=== PATIENT | male | born 1970 | race Caucasian/White ===

== ENCOUNTER 2020-01-06 18:29 | Observation (INO) | payer OTHER, SELFPAY ==
[2020-01-06] VITALS (8 sets, daily range): BP systolic 148–172; BP diastolic 93–107; PULSE 62–78; RESP 13–20; TEMP 35.7–36.6; O2SAT 98–100; BMI 28.3
--- NOTE | ~2020-01-06 | XR_ITS ---
EXAMINATION: XR chest 1V portable EXAM DATE: 01/06/2020 19:00 INDICATION: Midsternal chest pain, history of stent placement 3 years ago. History of hypertension an d epicardial infarction. TECHNIQUE: Portable AP frontal chest x-ray was obtained. Comparison is made to prior examination from 10/04/2016. FINDINGS: Right upper lobe granuloma. The lungs are otherwise clear. There are no pleural effusions. Cardiac silhouette is prominent but magnified on this AP technique. There is no pneumothorax susp ected. The bones and soft tissues are unremarkable. IMPRESSION: No acute cardiopulmonary findings. Reviewed, dictated and finalized at location A.
--- NOTE | 2020-01-06 18:35 | ECG_ITS ---
Measurements Intervals [place] Rate: 78 P: 35 WI: 174 QRS: -14 QRSD: 102 T: 18 QT: 375 QTc: 428 Interpretive Statements SINUS RHYTHM ANTEROSEPTAL INFARCT, AGE INDETERMINATE BASELINE ARTIFACT- II, III ABNORMAL ECG Electronically Signed On 01-08-2020 14:00:11 CDT by Ike Palomo D.O.
[2020-01-06 18:47] LABS: Basophils Absolute Auto 0.1 K/mm3 (0.0-0.1); Basophils Percent Auto 0.8 % (0.2-1.2); Eosinophils Absolute Auto 0.2 K/mm3 (0-0.3); Eosinophils Percent Auto 1.2 % (0-4.4); Hemoglobin 15.9 g/dL (14.0-18.0); Immature Granulocyte Absolute 0.06 K/mm3 (0.00-0.031); Immature Granulocyte Percent A 0.5 % (0-0.5); Lymphocytes Absolute Auto 2.38 K/mm3 (0.9-3.2); Lymphocytes Percent Auto 18.4 % (18.3-44.2); Mean Corpuscular HGB Conc 33.8 g/dl (32-36); Mean Corpuscular Hemoglobin 29.9 pg (26-34); Mean Corpuscular Volume 88.3 fl (80-100); Monocytes Absolute Auto 0.9 K/mm3 (0.1-0.6); Neutrophils Absolute Auto 9.4 K/mm3 (1.3-6.7); Neutrophils Percent Auto 72.1 % (45.5-73.1); Platelet Count Result 226 k/mm3 (150-375); Red Blood Count 5.32 M/mm3 (4.6-6.20)
--- NOTE | 2020-01-06 18:49 | ED.CHESTPAIN ---
HPI - Chest Pain General Chief Complaint: Chest Pain Stated Complaint: chest pain Time Seen by Provider: 01/06/20 18:34 Source: patient Mode of arrival: ambulatory Limitations: no limitations History of Present Illness HPI narrative: Patient 49-year-old male who presents to emergency department with chest heaviness for the last 3 days intermittent over the last couple of days became more constant today has taken aspirin and nitroglycerin with some improvement significant cardiac history with stents also noting that he is cardiac disease that did not get stented with 60% blockage in some vessels. Patient is followed by cardiology at [facility]. Patient denies any pain recent illness or other complaints presents in no distress and does not appear uncomfortable Related Data Home Medications Medication Instructions Recorded Confirmed aspirin 81 mg PO DAILY 01/06/20 atorvastatin 01/06/20 bupropion HCl mg PO 01/06/20 cyclobenzaprine mg 01/06/20 lisinopril 01/06/20 nebivolol [Bystolic] mg 01/06/20 nitroglycerin 0.4 mg SUBLINGUAL Q5-15M PRN 01/06/20 omeprazole 01/06/20 ticagrelor [Brilinta] mg 01/06/20 Allergies Allergy/AdvReac Type Severity Reaction Status Date / Time No Known Allergies Allergy Unknown Verified 01/06/20 18:35 Review of Systems Review of Systems: All systems reviewed & are unremarkable except as noted in HPI and below PMFSH Social History Social History Gender identity (if verbalized by the patient): Male Exam Narrative: Exam Narrative: GENERAL: Well-appearing, well-nourished, and in no acute distress. HEAD: Normocephalic, atraumatic. EYES: PERRLA and EOMI. ENT: Nares clear, no rhinorrhea or epistaxis. Mucous membranes moist. NECK: Supple. No adenopathy or masses. No carotid bruits or JVD CHEST: Clear to auscultation. No respiratory distress. No wheezes rales or rhonchi HEART: Regular rate and rhythm. No murmur heard. Normal peripheral pulses. ABDOMEN: Soft, nontender, nondistended EXTREMITIES: Normal range of motion. No edema. SKIN: Warm, dry, no rash. NEURO: No focal deficits. Alert and oriented x3. PSYCH: Normal mood and affect. Course Vital Signs Vital signs: Vital Signs Temperature 97.8 F 01/06/20 18:31 Pulse Rate 74 01/06/20 18:31 Respiratory Rate 13 01/06/20 18:31 Blood Pressure 172/107 H 01/06/20 18:31 Pulse Oximetry 100 01/06/20 18:31 Temperature 97.8 F 01/06/20 18:31 Pulse Rate 76 01/06/20 18:41 Respiratory Rate 13 01/06/20 18:41 Blood Pressure 172/107 H 01/06/20 18:41 Pulse Oximetry 100 01/06/20 18:41 MDM - Chest Pain Lab Data Result diagrams: 01/06/20 18:42 01/06/20 18:42 Labs: Lab Results 01/06/20 01/06/20 01/06/20 Range/Units 18:42 18:42 18:42 WBC 13.0 H (4.5-10.0) K/mm3 RBC 5.32 (4.6-6.20) M/mm3 Hgb 15.9 (14.0-18.0) g/dL Hct 47.0 (42.0-52.0) % MCV 88.3 (80-100) fl MCH 29.9 (26-34) pg MCHC 33.8 (32-36) g/dl RDW 12.0 (11.5-14.5) % Plt Count 226 (150-375) k/mm3 MPV 10.0 (7.4-10.4) fl Immature Gran % (Auto) 0.5 (0-0.5) % Neut % (Auto) 72.1 (45.5-73.1) % Lymph % (Auto) 18.4 (18.3-44.2) % [place] % (Auto) 7.0 (2.6-8.5) % Eos % (Auto) 1.2 (0-4.4) % Baso % (Auto) 0.8 (0.2-1.2) % Lymph # (Auto) 2.38 (0.9-3.2) K/mm3 [place] # (Auto) 0.9 H (0.1-0.6) K/mm3 Eos # (Auto) 0.2 (0-0.3) K/mm3 Baso # (Auto) 0.1 (0.0-0.1) K/mm3 Abs Immat Gran (auto) 0.06 H (0.00-0.031) K/mm3 Absolute Neuts (auto) 9.4 H (1.3-6.7) K/mm3 Absolute Nucleated RBC 0.0 (0.0-0.012) K/mm3 Nucleated RBC % 0.0 (0.0-0.2) % PT Pending INR Pending APTT Pending D-Dimer Pending Sodium Pending Potassium Pending Chloride Pending Carbon Dioxide Pending Anion Gap Pending BUN Pending Creatinine Pendi
[2020-01-06 18:57] LABS: INR 1.1; Partial Thromboplastin Time 26.4 SECONDS (22.3-36.8); Prothrombin Time 13.7 Seconds (11.1-14.7)
[2020-01-06 18:59] LABS: Alanine Aminotransferase 34 U/L (4-50); Albumin Level 4.4 g/dL (3.5-5.1); Alkaline Phosphatase 99 U/L (38-126); Anion Gap 9 mmol/L (8-16); Aspartate Amino Transferase 30 U/L (17-59); Bilirubin,Total 0.5 mg/dL (0.2-1.3); Blood Urea Nitrogen 23 mg/dL (9-20); Calcium 9.5 mg/dL (8.4-10.2); Carbon Dioxide 28 mmol/L (22-30); Chloride 101 mmol/L (98-107); Estimated CRCL calculation 87 ml/min; Estimated Glomerular Filt Rate > 60; Glucose 151 mg/dL (75-110); Lipase 182 U/L (23-300); Potassium 3.9 mmol/L (3.4-5.0); Sodium 138 mmol/L (137-145)
[2020-01-06 19:01] LABS: D Dimer < 0.22 ug/mL (<0.48)
[2020-01-06 19:11] LABS: NT Pro B Type Natriuretic Pept 118 PG/ML (5-100); Troponin I < 0.012 ng/mL (0.000-0.034)
[2020-01-06 19:34] LABS: Add Urine Microscopic? YES; Appearance Urine Clear (Clear); Bilirubin Urine Negative (Negative); Blood Urine 2+ (Negative); Color Urine Yellow (Yellow); Glucose Urine UA Negative (Negative); Ketones Urine Negative (Negative); Leukocyte Esterase Ur Negative LEU/UL (Negative); Mucus Urine Rare /lpf; Nitrate Urine Negative (Negative); Protein Urine Negative (Negative); Specific Grav Ur 1.018 (1.001-1.035); Squamous Epithelial Cell Urine Rare /hpf (Few); Urobilinogen Urine Negative mg/dL (<2.0); WBC Urine 0-3 /hpf
--- NOTE | 2020-01-06 19:40 | ED.CHESTPAIN ---
HPI - Chest Pain General Chief Complaint: Chest Pain Stated Complaint: chest pain Time Seen by Provider: 01/06/20 18:34 Source: patient Mode of arrival: ambulatory Limitations: no limitations History of Present Illness HPI narrative: Patient is a 49-year-old male who presents to emergency department for evaluation of chest heaviness that has been present now for the last 3 days was intermittent heaviness over the left chest for the last 2 days and then became more constant today patient took nitro and aspirin today and on arrival notes that the discomfort is resolving patient notes history of coronary artery disease with stenting and residual vessel disease is followed by cardiology at [facility] patient otherwise on arrival in no distress Related Data Home Medications Medication Instructions Recorded Confirmed aspirin 81 mg PO DAILY 01/06/20 atorvastatin 01/06/20 bupropion HCl mg PO 01/06/20 cyclobenzaprine mg 01/06/20 lisinopril 01/06/20 nebivolol [Bystolic] mg 01/06/20 nitroglycerin 0.4 mg SUBLINGUAL Q5-15M PRN 01/06/20 omeprazole 01/06/20 ticagrelor [Brilinta] mg 01/06/20 Allergies Allergy/AdvReac Type Severity Reaction Status Date / Time No Known Allergies Allergy Unknown Verified 01/06/20 18:35 Review of Systems Review of Systems: All systems reviewed & are unremarkable except as noted in HPI and below PMFSH Past Medical History Medical History Coronary stent occlusion Hyperlipidemia Hypertension Surgical History Surgical History History of coronary angioplasty with insertion of stent Social History Social History (Updated 01/06/20 @ 19:42 by Rodney Monroy PA-C) Smoking status: Current every day smoker Gender identity (if verbalized by the patient): Male Exam Narrative: Exam Narrative: GENERAL: Well-appearing, well-nourished, and in no acute distress. HEAD: Normocephalic, atraumatic. EYES: PERRLA and EOMI. ENT: Nares clear, no rhinorrhea or epistaxis. Mucous membranes moist. CHEST: Clear to auscultation. No respiratory distress. No wheezes rales or rhonchi HEART: Regular rate and rhythm. No murmur heard. Normal peripheral pulses. ABDOMEN: Soft, nontender, nondistended EXTREMITIES: Normal range of motion. No edema. SKIN: Warm, dry, no rash. NEURO: No focal deficits. Alert and oriented x3. Cranial nerves II through XII grossly intact PSYCH: Normal mood and affect. Course Course Emergency Course: Patient in the room at this time chest pain-free will be placed in hospital as recommended by the cardiology service patient will not require additional anticoagulation per cardiology again patient chest pain-free at this time Consultations Consultation #1: Spoke with cardiology group regarding the patient's care they would like him admitted for trending of the troponins no anticoagulation recommended. Spoke with Dr. Correia Date: 01/06/20 Time: 19:43 Vital Signs Vital signs: Vital Signs Temperature 97.8 F 01/06/20 18:31 Pulse Rate 74 01/06/20 18:31 Respiratory Rate 13 01/06/20 18:31 Blood Pressure 172/107 H 01/06/20 18:31 Pulse Oximetry 100 01/06/20 18:31 Temperature 97.8 F 01/06/20 18:31 Pulse Rate 76 01/06/20 18:41 Respiratory Rate 13 01/06/20 18:41 Blood Pressure 172/107 H 01/06/20 18:41 Pulse Oximetry 100 01/06/20 18:41 MDM - Chest Pain Lab Data Result diagrams: 01/06/20 18:42 01/06/20 18:42 Labs: Lab Results 01/06/20 01/06/20 01/06/20 Range/Units 18:42 18:42 18:42 WBC 13.0 H (4.5-10.0) K/mm3 RBC 5.32 (4.6-6.20) M/mm3 Hgb 15.9 (14.0-18.0) g/dL Hct 47.0 (42.0-52.0) % MCV 88.3 (80-100) fl MCH 29.9 (26-34) pg MCHC 33.8 (32-36) g/dl RDW 12.0 (11.5-14.5) % Plt Count 226 (150-375) k/mm3 MPV 10.0 (7.4-10.4) fl Immature Gran % (
[2020-01-06 20:13] LABS: Amphetamine Screen Urine Negative (Negative); Barbiturate Screen Urine Negative (Negative); Benzodiazepines Screen Urine Negative (Negative); Cannabinoid Screen Urine Negative (Negative); Cocaine Screen Urine Negative (Negative); Methadone Screen Urine Negative (Negative); Opiate Screen Urine Negative (Negative); Phencyclidine Screen Urine Negative (Negative)
[2020-01-06 20:15] LABS: Cholesterol 167 mg/dL (0-200); HDL Direct 40 mg/dL; Triglycerides 319 mg/dL (<150)
[2020-01-06 20:26] LABS: LDL Cholesterol Direct 83 mg/dL
[2020-01-06] MEDS: ACETAMINOPHEN 325 MG TABLET 650 MG PO (21:59)
[2020-01-06 22:17] LABS: Troponin I < 0.012 ng/mL (0.000-0.034)
--- NOTE | 2020-01-06 22:46 | ECG_ITS ---
Measurements Intervals [place] Rate: 65 P: 32 [place]: 177 QRS: -16 QRSD: 109 T: 20 QT: 403 QTc: 420 Interpretive Statements SINUS RHYTHM NONSPECIFIC ST ELEVATION IN DIFFUSE LEADS BORDERLINE ECG Electronically Signed On 01-07-2020 7:05:58 CDT by Ike Palomo D.O.
--- NOTE | 2020-01-06 22:47 | PC.NURSE ---
This patient, Shiva Almonte, was admitted to IMU Room 201-01. Patient/family oriented to hospital policies and general routines including ID bracelet, bed and alarms, visiting hours, pain management, procedures, bathroom and other care routines, personal items, smoking policy, room service/diet, and visiting hours. Information on how to activate the Rapid Response Team has been discussed. Patient/Family are encouraged to report perceived risks to care and to ask questions if they do not understand what they are told or what they should do.
[2020-01-07] VITALS (8 sets, daily range): BP systolic 138–161; BP diastolic 84–85; PULSE 52–68; RESP 16–18; TEMP 35.6–36.6; O2SAT 97
[2020-01-07 00:56] LABS: Troponin I < 0.012 ng/mL (0.000-0.034)
--- NOTE | 2020-01-07 01:46 | ECG_ITS ---
Measurements Intervals [place] Rate: 55 P: 45 [place]: 182 QRS: -10 QRSD: 110 T: 24 QT: 435 QTc: 417 Interpretive Statements SINUS BRADYCARDIA BORDERLINE ECG Electronically Signed On 01-07-2020 7:07:07 CDT by Ike Palomo D.O.
[2020-01-07] MEDS: ACETAMINOPHEN 325 MG TABLET 650 MG PO (03:53)
[2020-01-07] MEDS: ASPIRIN 81 MG CHEWABLE TABLET PO (09:14)
--- NOTE | 2020-01-07 10:17 | PM.SD ---
Same Day Admit/Disch: HPI History of Present Illness Chief complaint: chest pain Narrative: Shiva Almonte is a 49 year old male with a history of CAD who was admitted with chest pain for observation. The patient is followed by Dr. Chu. He had a small non-STEMI in September 2016 and was treated with 2 drug-eluting stents the 1st diagonal. He has been doing well, last seen in August 2019 with no angina. His he also has prediabetes and hyper lipidemia with hypertriglyceridemia. He also continues to smoke. The patient has noticed some intermittent substernal chest pressure for the past 2 or 3 days which had no aggravating factors. It tended to occur at rest and was mild. Yesterday woke him up in the leadite heater and took an aspirin and the cyclobenzaprine and 1 away. Around 304 yesterday it occurred while watching TV and was ?just there.? It was again a pressure with no associated nausea, vomiting diaphoresis shortness of breath. Nitroglycerin helped a little. Since the persisted he thought he should go to the emergency room. He had another mild episode yesterday evening an EKG was obtained, showing no acute changes. The patient recalls last week straining to get his backpack out of the back seat and wonders if he had a pulled muscle. [facility] Past Medical History Medical History CAD (coronary artery disease) September 2016 small non-STEMI, 2 drug-eluting stents to the 1st diagonal Hyperlipidemia Hypertension Hypertriglyceridemia Tobacco use Surgical History Surgical History History of coronary angioplasty with insertion of stent Family History Family History (Updated 01/07/20 @ 10:25 by Zenaida Correia MD) Father Acute myocardial infarction Congestive heart failure Diabetes mellitus Hypertension Cerebrovascular accident 1st stroke was treated successfully with tPA. Later of a hemorrhagic stroke. Grandparent Acute myocardial infarction Mother Alive and well Social History Social History (Updated 01/07/20 @ 10:26 by Zenaida Correia MD) Social History: , has 2 sons ages 11 and 14 as of December 2019. Has a steady girlfriend/partner. 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 Has had problems with erectile dysfunction and finds an edible marijuana named Sativa has helped considerably. Smoking packs per day: 1 Smoking cigarettes per day: 20.0 Years smoked: 30 Smoking pack-years: 30.00 Smoking status: Current every day smoker Tobacco type: cigarettes Alcohol intake: current Drinks per week: 4 Substance use: current Substance use type: marijuana Gender identity (if verbalized by the patient): Male Spiritual care concerns: No Same Day Admit/Disch: Med Pre-admit Medications Home Medications Medication Instructions Recorded Confirmed Type aspirin 81 mg PO DAILY 01/06/20 01/06/20 History atorvastatin 40 mg PO QPM 01/06/20 01/06/20 History bupropion HCl 300 mg PO DAILY 01/06/20 01/06/20 History cyclobenzaprine 10 mg PO DAILY 01/06/20 01/06/20 History lisinopril 5 mg PO DAILY 01/06/20 01/06/20 History nebivolol [Bystolic] 2.5 mg PO QPM 01/06/20 01/06/20 History omeprazole 40 mg PO DAILY 01/06/20 01/06/20 History ticagrelor [Brilinta] 60 mg PO BID 01/06/20 01/06/20 History atorvastatin 80 mg PO DAILY #90 tablet 01/07/20 Rx icosapent ethyl [Vascepa] 2 g PO BID #120 cap 01/07/20 Rx nitroglycerin 0.4 mg SUBLINGUAL Q5-15M PRN #25 01/07/20 Rx tablet Exam Const: General: cooperative, healthy appearing, comfortable and no acute distress Nutritional Appearance: overweight Orientation/consciousness: patient oriented x3 HENMT: Head: normocephalic and atraumatic Ears: external ears normal General nose exam: Normal nares present Face and sinus: normal facial exam Mouth: Yes Normal oral and palatal mucosa present Eyes: General: appearance no
[2020-01-07] MEDS: lisinopriL 5 MG TABLET PO (10:42)
[2020-01-07] MEDS: PANTOPRAZOLE 40 MG TABLET PO (10:42)
[2020-01-07] MEDS: buPROPion HCL XL (24 HR) 150 MG TABCR 300 MG PO (10:42)
[2020-01-07] MEDS: TICAGRELOR 60 MG TABLET PO (10:42)
== END 2020-01-07 11:12 | disposition home or self-care (01) ==
LOC: ANHED 20:07 → ANHIMU 20:20
PROVIDERS: Emergency Medicine Emergency Medical Services; Admitting Provider Internal Medicine Cardiovascular Disease; Emergency Provider Emergency Medicine; PCP Family Medicine Sports Medicine; Visit Provider Internal Medicine Cardiovascular Disease
DX: R07.9 Chest pain, unspecified (principal); I25.10 Atherosclerotic heart disease of native coronary artery without angina pectoris; I10 Essential (primary) hypertension; I25.2 Old myocardial infarction; E78.5 Hyperlipidemia, unspecified; E78.1 Pure hyperglyceridemia; F17.210 Nicotine dependence, cigarettes, uncomplicated; R73.03 Prediabetes; Z95.5 Presence of coronary angioplasty implant and graft
CPT/HCPCS: 36415; 71045; 80053; 80061; 80307; 81001; 83690; 83880; 84484; 85025; 85380; 85610; 85730; 93005; 99285; A9270; G0378

== ENCOUNTER 2020-03-29 00:53 | Outpatient (CLI) | payer OTHER, SELFPAY ==
[2020-03-29 18:46] LABS: SARS-CoV-2 RNA PCR Negative
== END 2020-03-29 00:54 | disposition home or self-care (01) ==
LOC: ANHCOVIDDT 00:53
PROVIDERS: PCP Family Medicine Sports Medicine; Visit Provider Specialist
DX: Z01.812 Encounter for preprocedural laboratory examination (principal); Z20.822 Contact with and (suspected) exposure to COVID-19
CPT/HCPCS: C9803; U0003; U0005

== ENCOUNTER 2020-04-01 01:26 | Day surgery (SDC) | payer OTHER, SELFPAY ==
[2020-03-29 14:39] VITALS: BMI 29.2
[2020-04-01] VITALS (20 sets, daily range): BP systolic 121–161; BP diastolic 89–103; PULSE 58–75; RESP 8–21; TEMP 36.1–36.9; O2SAT 94–100; BMI 28.7
[2020-04-01 07:39] LABS: Basophils Absolute Auto 0.1 K/mm3 (0.0-0.1); Eosinophils Absolute Auto 0.1 K/mm3 (0-0.3); Eosinophils Percent Auto 1.1 % (0-4.4); Hematocrit 52.1 % (42.0-52.0); Hemoglobin 16.9 g/dL (14.0-18.0); Immature Granulocyte Absolute 0.06 K/mm3 (0.00-0.031); Immature Granulocyte Percent A 0.5 % (0-0.5); Lymphocytes Absolute Auto 2.14 K/mm3 (0.9-3.2); Lymphocytes Percent Auto 18.5 % (18.3-44.2); Mean Corpuscular HGB Conc 32.4 g/dl (32-36); Mean Corpuscular Volume 89.4 fl (80-100); Mean Platelet Volume 9.7 fl (7.4-10.4); Monocytes Absolute Auto 0.7 K/mm3 (0.1-0.6); Monocytes Percent Auto 6.1 % (2.6-8.5); Neutrophils Absolute Auto 8.4 K/mm3 (1.3-6.7); Neutrophils Percent Auto 72.8 % (45.5-73.1); Platelet Count Result 200 k/mm3 (150-375); Red Blood Count 5.83 M/mm3 (4.6-6.20); Red Cell Distribution Width 13.2 % (11.5-14.5); White Blood Count 11.6 K/mm3 (4.5-10.0)
[2020-04-01 07:48] LABS: INR 0.9; Prothrombin Time 13.2 Seconds (11.1-14.7)
[2020-04-01 08:14] LABS: Anion Gap 8 mmol/L (8-16); Blood Urea Nitrogen 24 mg/dL (9-20); Calcium 9.4 mg/dL (8.4-10.2); Carbon Dioxide 29 mmol/L (22-30); Chloride 101 mmol/L (98-107); Estimated CRCL calculation 96 ml/min; Estimated Glomerular Filt Rate > 60; Glucose 134 mg/dL (75-110); Potassium 4.5 mmol/L (3.4-5.0); Sodium 138 mmol/L (137-145)
--- NOTE | 2020-04-01 08:21 | WPDMODSED ---
Moderate Sedation Note-Pt Data Patient Data Diagnosis: Coronary artery disease with previous PCI to diagonal Chest pain despite normal nuclear stress test Present Complaint: Intermittent chest pain Procedure to be performed/Plan: Left heart catheterization Allergies Allergy/AdvReac Type Severity Reaction Status Date / Time No Known Allergies Allergy Unknown Verified 04/01/20 07:40 Home Medications Medication Instructions Recorded Confirmed Type Brilinta 60 mg PO BID 01/06/20 03/29/20 History Bystolic 2.5 mg PO QPM 01/06/20 03/29/20 History aspirin 81 mg PO DAILY 01/06/20 03/29/20 History bupropion HCl 300 mg PO DAILY 01/06/20 03/29/20 History lisinopril 5 mg PO DAILY 01/06/20 03/29/20 History omeprazole 40 mg PO DAILY 01/06/20 03/29/20 History atorvastatin 80 mg PO DAILY #90 tablet 01/07/20 03/29/20 Rx nitroglycerin 0.4 mg SUBLINGUAL Q5-15M PRN #25 01/07/20 03/29/20 Rx tablet Current Medications: Active Medications Sodium Chloride (Normal Saline Iv) 500 mls @ 100 mls/hr IV CONT .Q5H ERNESTO Sedation/Anesthesia: No previous sedation/anesthesia problems (including family history). FOR[facility]LY [facility], [facility] Past Medical History Medical History CAD (coronary artery disease) September 2016 small non-STEMI, 2 drug-eluting stents to the 1st diagonal Hyperlipidemia Hypertension Hypertriglyceridemia Tobacco use Surgical History Surgical History History of coronary angioplasty with insertion of stent Family History Family History (Updated 01/07/20 @ 10:25 by Zenaida Correia MD) Father Acute myocardial infarction Congestive heart failure Diabetes mellitus Hypertension Cerebrovascular accident 1st stroke was treated successfully with tPA. Later of a hemorrhagic stroke. Grandparent Acute myocardial infarction Mother Alive and well Social History Social History (Updated 01/07/20 @ 10:26 by Zenaida Correia MD) Social History: , has 2 sons ages 11 and 14 as of December 2019. Has a steady girlfriend/partner. 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 Has had problems with erectile dysfunction and finds an edible marijuana named Sativa has helped considerably. Smoking packs per day: 0.5 Smoking cigarettes per day: 10.0 Years smoked: 40 Smoking pack-years: 20.00 Smoking status: Current every day smoker Tobacco type: cigarettes Alcohol intake: current Drinks per week: 3 Substance use: current Substance use type: marijuana Gender identity (if verbalized by the patient): Male Spiritual care concerns: No Mod Sed Physical Exam Physical Exam Pre Procedural Exam: Normal: Appearance, Neck, Throat, Airway, Lungs, Heart Size, Heart Rate, Heart Rhythm, Neuro Exam and Extremities Hours since solid foods: 12 Hours since liquid intake: 12 Internal Medicine - PN: Obj Da Vital Signs Vital Signs: Vital Signs - 24 hr 04/01/20 07:30 Temperature 36.1 C L Pulse Rate 75 Respiratory Rate 15 Blood Pressure 161/103 H Pulse Oximetry 100 Meds/Results Medications: Active Medications Generic Name Dose Route Start Last Admin Trade Name Freq PRN Reason Stop Dose Admin Sodium Chloride 500 mls @ 100 mls/hr 04/01/20 04:40 Normal Saline Iv IV CONT .Q5H ERNESTO Labs CBC & Chem 7: 04/01/20 07:27 04/01/20 07:53 Labs: Laboratory Results - last 24 hr 04/01/20 04/01/20 04/01/20 07:27 07:27 07:53 WBC 11.6 H RBC 5.83 Hgb 16.9 Hct 52.1 H MCV 89.4 MCH 29.0 MCHC 32.4 RDW 13.2 Plt Count 200 MPV 9.7 Immature Gran % (Auto) 0.5 Neut % (Auto) 72.8 Lymph % (Auto) 18.5 [place] % (Auto) 6.1 Eos % (Auto) 1.1 Baso % (Auto) 1.0 Lymph # (Auto) 2.14 [place] # (Auto) 0.7 H Eos # (Auto) 0.1 Baso # (Auto) 0.1 Abs Immat Gran (auto) 0.06 H Absolute Neuts (auto) 8.4 H
--- NOTE | 2020-04-01 09:32 | ECG_ITS ---
Measurements Intervals [place] Rate: 56 P: 42 [place]: 177 QRS: -13 QRSD: 105 T: 14 QT: 427 QTc: 415 Interpretive Statements SINUS BRADYCARDIA BORDERLINE ECG Electronically Signed On 04-01-2020 11:08:16 PERMACULTURE DESIGNER by Ike Palomo D.O.
--- NOTE | 2020-04-01 09:34 | WPDCARDPROC ---
Cardiac Cath Procedure Note Date of procedure:: 04/01/20 Performing physician:: Moi Mattson MD Indication:: exertional angina previous stent to proximal LAD in 2017 Brief clinical history:: this is a 49-year-old patient known to have coronary disease who underwent PCI of the proximal LAD in 2017. He is now reporting exertional chest pain typical of angina. Procedure Procedure performed:: Left heart catheterization with left ventriculography, coronary angiography and PCI to distal circumflex Sedation/Medication given:: fentanyl 100 mg Versed 2 mg case start time 8:51 a.m. case end time 9:26 a.m. sedation provided by Dena Rodriguez RN, trained observer Access site:: right femoral artery Estimated blood loss:: 20-30 cc Procedure note:: patient was brought to the cardiac catheterization lab in the postabsorptive state where the right femoral triangle was prepared and draped in the usual fashion. Anesthesia was provided with 1% lidocaine infiltrated locally. Using the modified Seldinger technique a 5 British sheath was placed into the right femoral artery. After this I used a 5 British angled pigtail catheter to perform a left ventriculogram in the BOYD projection and to document left-sided hemodynamics. Following this the right coronary artery was engaged and injected using a 5 British JR4 catheter the left coronary was engaged and injected using a 5 British FL4 catheter. The cine angiograms were then reviewed and following this PCI of the distal circumflex was recommended and carried out as detailed below. Prior to PCI the 5 British sheath was changed for a guidewire over for a 6 British device. The patient was then systemically anticoagulated with Angiomax and received an additional 90 mg of oral Brilinta prior to PCI. Following the intervention the sheath was sutured into position the patient was taken to the holding area for recovery and sheath removal. Procedure was uncomplicated and well tolerated. There was no groin hematoma upon leaving the catheter builder. Findings:: Hemodynamics: Central aortic pressure is 134/70 left ventricle 134/0 end-diastolic is 4 there is no gradient on pullback across the aortic valve. Left ventricle: The LV is normal in size the inferior wall is mildly hypodynamic the overall contractility is good with an ejection fraction of 55-60% left main coronary artery is nicely patent the left anterior descending is a medium caliber vessel extending down to around the apex the LAD has visible stent material in the proximal 1/3 which remains widely patent with no loss of lumen. There is mild to moderate distal disease in the LAD down near the apex where the vessel is quite small this represents about 60-70% stenosis. Circumflex is a very large caliber artery which is dominant to the posterior circulation. The circumflex has a high-grade stenosis of 99% after the major OM branch takes off and prior to the posterior branches. This is a segment which had moderate 50-60% disease in 2017. Right coronary artery is very small in caliber non dominant and is free of significant disease. Intervention: The left coronary artery was engaged using a 6 British CLS 3.5 guiding catheter. A 0.014 BMW coronary guidewire was used to traverse the stenosis and advanced into the left PDA. Following this the lesion was pre-dilated using a 3.0 x 20 mm emerge PTCA balloon at nominal pressure. Following this the lesion was stented using a 4.0 x 18 mm Orsiro drug-eluting stent which was deployed at nominal atmospheres this was then post dilated at 14 atmospheres using a 4 mm noncompliant apex balloon. At the end of the procedure the target lesion angiographically look excellent with no residual stenosis dissection perforation or distal embolization. Distal to this there is about 40-50% stenosis in the trunk of the circumflex prior to the left PDA. This does not appear to be flow-limiting in any view. Conclusion:: 1.
--- NOTE | 2020-04-01 12:19 | SUR.PHASEII ---
1215-sheath pulled and firm pressure applied by Ladonna Pepe RN. Groin soft and non-tender, no evidence of bleeding or hematoma noted. Will continue to monitor.
[2020-04-01] MEDS: ACETAMINOPHEN 500 MG TABLET PO (15:05)
--- NOTE | 2020-04-01 16:20 | PM.DS ---
DS: Admitting Diagnosis Admitting Diagnosis Admitting Diagnosis: Coronary artery disease with recurrent angina pectoris DS: Discharge Diagnosis Discharge Diagnosis (1) Coronary stent restenosis due to progression of disease: Code(s): T82.855A - Stenosis of coronary artery stent, initial encounter; I25.10 - Atherosclerotic heart disease of [place] coronary artery without angina pectoris Status: Acute DS: Summary Hospital Course Hospital Course: This is a 49-year-old man with history of coronary disease who underwent percutaneous revascularization of the LAD in 2017. He is followed in our office and has been reporting recent onset of symptoms compatible with exertional angina. Following this nuclear stress test was done which showed development of anginal-type chest pain but there were no perfusion deficits identified. Catheterization was recommended in this setting. He underwent follow-up angiography on the morning of admission without complication. The patient was found to have patent stents in the LAD from his intervention 4 years ago. He has left coronary dominant circulation and there was a high-grade stenosis in the distal circumflex which was angiographically give very large vessel this segment had modest 50% stenosis in it at the time of his last intervention. PCI of this lesion was recommended and carried out using a 4 mm [employer]est[employer] drug-eluting stent with a good anatomical result. The details of the procedure are the separately dictated cardiac catheterization lab note. Procedure was uneventful and uncomplicated the patient appears to be a good candidate for discharge and will be discharged later this evening as long as there is no difficulty with hemostasis at the right groin puncture site. His medical regimen will be continued with the only change being to advance his Brilinta back to 90 mg q.12 hours. Time spent discussing smoking cessation with patient: more than 10 minutes Status at Discharge Functional status at discharge: independent ambulation Time Spent with Patient Time attestation: Total time spent providing and/or coordinating discharge services: Time spent: Greater than 30 minutes Exam Const: General: comfortable and no acute distress HENMT: Mouth: Yes moist mucous membranes Eyes: Sclera: sclerae normal Pupils: Equal, round and reactive pupils present Neck: Neck: no JVD Thyroid: thyroid normal Other: Carotid pulses are normal bilaterally and are free of bruits Resp: Effort & Inspection: normal respiratory effort Auscultation: clear to auscultation bilaterally Cardio: Rate: regular rate Rhythm: regular rhythm GI: GI Palp: Yes Soft to palpation Auscultation: normal bowel sounds Skin: General skin exam: normal color Neuro: Other: Normal cognition Extrem: General: normal to inspection Other: Right groin puncture site looks normal good pulse no bruit no hematoma. DS: Data Data Completed and Pending Labs on day of discharge: Labs from last 24 hours 04/01/20 04/01/20 04/01/20 07:53 07:27 07:27 WBC 11.6 H RBC 5.83 Hgb 16.9 Hct 52.1 H MCV 89.4 MCH 29.0 MCHC 32.4 RDW 13.2 Plt Count 200 MPV 9.7 Immature Gran % (Auto) 0.5 Neut % (Auto) 72.8 Lymph % (Auto) 18.5 [place] % (Auto) 6.1 Eos % (Auto) 1.1 Baso % (Auto) 1.0 Lymph # (Auto) 2.14 Parmer # (Auto) 0.7 H Eos # (Auto) 0.1 Baso # (Auto) 0.1 Abs Immat Gran (auto) 0.06 H Absolute Neuts (auto) 8.4 H Absolute Nucleated RBC 0.0 Nucleated RBC % 0.0 PT 13.2 INR 0.9 Sodium 138 Potassium 4.5 Chloride 101 Carbon Dioxide 29 Anion Gap 8 BUN 24 H Creatinine 0.90 Estim Creat Clear Calc 96 Estimated GFR > 60 Glucose 134 H Calcium 9.4 Discharge Plan Discharge Patient Disposition: Home, Self-Care Discharge Instructions: No driving for 24 hours No lifting, pushing or pulling more than 10 pounds for 1 week No strenuous exer
[2020-04-01] MEDS: TICAGRELOR 90 MG TABLET PO (19:25)
== END 2020-04-01 19:45 | disposition home or self-care (01) ==
PROVIDERS: PCP Family Medicine Sports Medicine; Visit Provider Specialist
PROC: 4A023N7 Measurement of Cardiac Sampling and Pressure, Left Heart, Percutaneous Approach (ICD-10-PCS; CPT 93452; principal; 2020-04-01 08:30)
PROC: (CPT 92928; 2020-04-01 08:30)
DX: T82.855A Stenosis of coronary artery stent, initial encounter (principal); I25.10 Atherosclerotic heart disease of native coronary artery without angina pectoris; R07.9 Chest pain, unspecified; R00.1 Bradycardia, unspecified; I10 Essential (primary) hypertension; E78.5 Hyperlipidemia, unspecified; E78.1 Pure hyperglyceridemia; F17.210 Nicotine dependence, cigarettes, uncomplicated; Y83.8 Other surgical procedures as the cause of abnormal reaction of the patient, or of later complication, without mention of misadventure at the time of the procedure; Z79.82 Long term (current) use of aspirin; Z79.01 Long term (current) use of anticoagulants
CPT/HCPCS: 36415; 80048; 85025; 85610; 93005; 93458; A9270; C1725; C1769; C1874; C1887; C1894; C9600; C9803; J0461; J0583; J1644; J2250; J3010; J7040; U0003; U0005

== ENCOUNTER 2021-12-16 07:37 | Outpatient (CLI) | payer OTHER, SELFPAY ==
--- NOTE | 2021-12-23 18:16 | WPDHOMESLEEP ---
Sleep Study - Home Unattended Date of Study: 12/16/21 Ordering Provider: Isacc Chu MD Interpreting Provider: Estrellita Lopez MD Home Sleep Study Type: Watch PAT Height: 1.83 m Weight: 97.069 kg Body Mass Index: 29.0 Neck Circumference (inches): 16.25 [place]: 16 Reason for Sleep Study Hypersomnolence, snoring, fatigue Sleep History Shiva Almonte is a 51-year-old man with complaints of loud snoring, daytime fatigue and excessive daytime sleepiness. He frequently awakens from sleep feeling short of breath. He occasionally awakens at night with heartburn, belching or coughing. He constantly snores and this is constantly loud enough that others complain about it. He frequently has trouble sleeping with a cold. Frequently wakes up gasping for breath at night. He rarely has breathing problems at night observed by others. Frequently sweats excessively at night. He rarely notices his heart pounding or beating irregularly at night. He occasionally falls asleep during the day. He rarely falls asleep involuntarily however frequently falls asleep while driving he does not have loss of muscle tone with strong emotion. He occasionally has daytime difficulties due to excessive sleepiness. Does not feel paralyzed on waking or falling asleep nor does he have vivid dreamlike scenes on waking or falling asleep. He does not feel afraid to go to sleep. He occasionally has nightmares. He rarely remembers his dreams. He rarely has racing thoughts. He rarely feels sad or depressed. He occasionally has anxiety. He frequently has muscular tension. Occasionally notices parts of his body jerking. He occasionally kicks at night. He does not have crawling or aching feelings in his legs. He does not have any kind of leg pain at night. He does not have morning jaw pain. He occasionally grinds his teeth during sleep. He frequently is bothered by pain during the day. He occasionally is awakened by pain during the night. He frequently wakes up feeling stiff in the morning. Frequently wakes up with sore or achy muscles. He constantly wakes up with pain in the neck and spine. He has headaches, fatigue, memory problems and concentration difficulties. Normal bedtime is between 10:00 p.m. and 11:00 p.m., falling asleep quickly, walked waking multiple times at night to go to the bathroom, get a drink of water and then return to sleep. On average he stays awake between 5 and 20 minutes. There are multiple awakenings each night. His normal wake up time is between 4:00 a.m. and 5:00 a.m.. His weekend schedule is similar, bedtime is between midnight and 1:00 a.m., wake-up time is also between 4:00 a.m. and 5:00 a.m.. He estimates getting about 4 hours of sleep per night. He denies taking naps in the day. A short nap is not refreshing. He is usually drowsy after waking for 3 hours or longer. Habits: Quit tobacco 9 months ago. Caffeine 3-4 servings per day. 1-2 servings of alcohol per day. There is a history of recreational drugs. [facility] Past Medical History Medical History CAD (coronary artery disease) September 2016 small non-STEMI, 2 drug-eluting stents to the 1st diagonal Hyperlipidemia Hypertension Hypertriglyceridemia Tobacco use Surgical History Surgical History History of coronary angioplasty with insertion of stent Family History Family History Father Acute myocardial infarction Congestive heart failure Diabetes mellitus Hypertension Cerebrovascular accident 1st stroke was treated successfully with tPA. Later of a hemorrhagic stroke. Grandparent Acute myocardial infarction Mother Alive and well Social History Social History Social History: , has 2 sons ages 11 and 14 as of December 2019. Has a steady girlfriend/partner. 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
[2021-12-23 18:25] VITALS: BMI 29.0
--- NOTE | 2022-05-19 08:32 | SLEEP ---
pt in [place]
== END 2021-12-17 09:13 | disposition home or self-care (01) ==
PROVIDERS: PCP Family Medicine Sports Medicine; Visit Provider Internal Medicine Cardiovascular Disease
DX: G47.33 Obstructive sleep apnea (adult) (pediatric) (principal); G47.10 Hypersomnia, unspecified; R06.00 Dyspnea, unspecified
CPT/HCPCS: 95800

== ENCOUNTER → 2022-03-10 10:08 | Outpatient (CLI) | payer OTHER, SELFPAY ==
--- NOTE | ~2022-03-10 | CT_ITS ---
EXAMINATION: CT lung screening DATE: 03/10/2022 10:21 INDICATION: Lung cancer screening TECHNIQUE: Computed tomography (CT) of the chest was performed without intravenous contrast. Addition al 3D reconstructions utilizing coronal maximum intensity projection (MIP) were performed. Automated exposure control and iterative reconstruction technique were employed. The dose-length product was 26 9.66 mGy-cm. COMPARISON: None FINDINGS: Lungs are clear with no pulmonary nodules, pneumonia, pulmonary edema or pleural effusion. Heart size is normal. Atherosclerotic coronary artery calcific location. No pericardial effusion. Thoracic aort a is normal in caliber. No pathologically enlarged thoracic lymphadenopathy. Small sliding-type hiata l hernia. Diffuse hepatic steatosis. Mild thoracic spondylosis. IMPRESSION: 1. Lung-RADS category 1: Negative. Continue annual screening with noncontrast low-dose chest CT in 12 months. Reviewed, dictated and finalized at location A. M PROCESSOR IMPRESSION: 1. Lung-RADS category 1: Negative. Continue annual screening with noncontrast l ow-dose chest CT in 12 months.
== END ==
PROVIDERS: PCP Family Medicine Sports Medicine; Visit Provider Physician Assistant
DX: Z12.2 Encounter for screening for malignant neoplasm of respiratory organs (principal); Z87.891 Personal history of nicotine dependence
CPT/HCPCS: 71271

== ENCOUNTER 2022-11-23 09:24 | Inpatient (IN) | payer OTHER, SELFPAY ==
[2022-11-23] VITALS (27 sets, daily range): BP systolic 73–107; BP diastolic 57–76; PULSE 71–89; RESP 11–20; TEMP 34.2–37.1; O2SAT 90–100; BMI 24.1
--- NOTE | ~2022-11-23 | CT_ITS ---
Non-contrast CT scan of the Abdomen and Pelvis Clinical indication: Abdominal pain Technique: 2.5 mm axial scans were obtained through the abdomen and pelvis without intravenous or or al contrast. Dose reduction technique was used on this scan by utilizing automated exposure control a nd iterative reconstruction technique. The dose-length product (DLP) was 627.89 mGy-cm. Findings: Images through the lung bases reveal no abnormalities. There is no evidence of renal or ureteral calculi. The kidneys and the ureters are nondilated. The liver, spleen, pancreas, gallbladder, and adrenals appear normal. There is no aortic aneurysm. There is no evidence of bowel obstruction. Evidence of prior herniorrhaphy. No evidence for appendici tis. Images through the pelvis were performed. There is no evidence of ascites or lymphadenopathy. Urinary bladder unremarkable. No pelvic mass seen. No ascites. Impression: No significant abnormality seen. Reviewed, dictated and finalized at [facility]. Impression: No significant abnormality seen.
--- NOTE | ~2022-11-23 | US_ITS ---
US renal BI 11/24/2022 09:09 Procedure: Realtime transabdominal ultrasound of the kidneys and bladder. Indication: Acute renal insufficiency Comparison: No prior studies for comparison. Findings: Renal echotexture is normal bilaterally without hydronephrosis, contour deforming mass or r enal calculus. The right kidney measures 13 cm and left kidney measures 13.9 cm. Bladder within norm al limits. Prostate gland is prominent. Impression: 1: Unremarkable renal ultrasound. No stones, masses or hydronephrosis. Reviewed, dictated and finalized at location L. Impression: 1: Unremarkable renal ultrasound. No stones, masses or hydronephrosis.
--- NOTE | ~2022-11-23 | XR_ITS ---
EXAMINATION: XR chest 2V 11/23/2022 13:22 INDICATION: Weakness and dyspnea PROCEDURE: 2 view chest COMPARISON: 01/06/2012 FINDINGS: The lungs are clear. The cardiomediastinal silhouette is within normal limits. There are no pleural effusions. There is no pneumothorax suspected. IMPRESSION: 1: NO ACUTE CARDIOPULMONARY DISEASE. Reviewed, dictated and finalized at location B.
--- NOTE | 2022-11-23 10:50 | ECG_ITS ---
Measurements Intervals [place] Rate: 72 P: 2 IA: 198 QRS: -25 QRSD: 106 T: 32 QT: 393 QTc: 432 Interpretive Statements SINUS RHYTHM ANTEROSEPTAL INFARCT, AGE INDETERMINATE BASELINE WANDER- II, III, AVF ABNORMAL ECG SINUS RHYTHM NOW PRESENT MYOCARDIAL INFARCT FINDING NOW PRESENT Electronically Signed On 11-23-2022 13:15:52 CDT by Ike Palomo D.O.
[2022-11-23] MEDS: SODIUM CHLORIDE 0.9% IV 1,000 ML 999 ML IV CONT ×2 (11:18→12:58)
[2022-11-23 11:29] LABS: Basophils Absolute Auto 0.1 K/mm3 (0.0-0.1); Basophils Percent Auto 0.5 % (0.2-1.2); Eosinophils Absolute Auto 0.3 K/mm3 (0-0.3); Eosinophils Percent Auto 1.5 % (0-4.4); Hematocrit 46.5 % (42.0-52.0); Immature Granulocyte Absolute 0.08 K/mm3 (0.00-0.031); Immature Granulocyte Percent A 0.4 % (0-0.5); Lymphocytes Absolute Auto 2.48 K/mm3 (0.9-3.2); Lymphocytes Percent Auto 12.4 % (18.3-44.2); Mean Corpuscular HGB Conc 32.3 g/dl (32-36); Mean Corpuscular Hemoglobin 28.4 pg (26-34); Mean Corpuscular Volume 88.1 fl (80-100); Monocytes Absolute Auto 1.2 K/mm3 (0.1-0.6); Monocytes Percent Auto 5.8 % (2.6-8.5); Neutrophils Absolute Auto 15.9 K/mm3 (1.3-6.7); Neutrophils Percent Auto 79.4 % (45.5-73.1); Platelet Count Result 263 k/mm3 (150-375); Red Blood Count 5.28 M/mm3 (4.6-6.20); Red Cell Distribution Width 14.6 % (11.5-14.5)
[2022-11-23 11:39] LABS: Lactic Acid Reflex 0.8 mmol/L (0.7-2.0); Prothrombin Time 13.5 Seconds (11.1-14.7)
[2022-11-23 11:40] LABS: Partial Thromboplastin Time 30.3 SECONDS (22.3-36.8)
[2022-11-23 11:44] LABS: Beta-Hydroxybutyrate/Acetoacetate 1.07 mmol/L (0.02-0.27)
[2022-11-23 11:45] LABS: Alanine Aminotransferase 135 U/L (6-50); Albumin Level 4.5 g/dL (3.5-5.1); Alkaline Phosphatase 79 U/L (38-126); Anion Gap 22 mmol/L (8-16); Aspartate Amino Transferase 66 U/L (17-59); Bilirubin,Total 0.3 mg/dL (0.2-1.3); CRP < 0.5 mg/dL (<1.0); Calcium 9.5 mg/dL (8.4-10.2); Carbon Dioxide 8 mmol/L (22-30); Chloride 109 mmol/L (98-107); Estimated CRCL calculation 11 ml/min; Estimated Glomerular Filt Rate 7; Glucose 123 mg/dL (65-110); Lipase 303 U/L (23-300); Phosphorus 7.2 mg/dL (2.5-4.5); Sodium 139 mmol/L (137-145)
--- NOTE | 2022-11-23 11:45 | PCRCNOTE ---
Pt refused ABG'S
--- NOTE | 2022-11-23 11:49 | ED.NAVMDI ---
HPI - Nausea/Vomiting/Diarrhea General Chief complaint: Nausea/Vomiting/Diarrhea <Vanita Florez PA-C - Last Filed: 11/23/22 18:36> Stated complaint: nausea/vomiting <Vanita Florez PA-C - Last Filed: 11/23/22 18:36> Time Seen by Provider: 11/23/22 10:46 <Vanita Florez PA-C - Last Filed: 11/23/22 18:36> Source: patient and family <Vanita Florez PA-C - Last Filed: 11/23/22 18:36> Mode of arrival: wheelchair <ERAN Charles Last Filed: 11/23/22 18:36> Limitations: no limitations <Vanita Florez PA-C - Last Filed: 11/23/22 18:36> History of Present Illness HPI Narrative: This is a 52-year-old male that presents to the emergency department for abdominal pain, nausea and vomiting. Ongoing over the last several weeks. Reports his dose of Ozempic was recently increased. He was unable to tolerate this due to GI side effects. He stopped taking it about 2 weeks ago. He has had continued epigastric abdominal discomfort. It is crampy in nature. Also reports alternating between constipation and diarrhea. Denies fever, chest pain, shortness of breath, or dysuria. <Vanita Florez PA-C - Last Filed: 11/23/22 18:36> Related Data Home medications: Home Medications Medication Instructions Recorded Confirmed aspirin 81 mg tablet 81 mg PO DAILY 01/06/20 07/27/22 bupropion HCl 300 mg 24 hr tablet, 300 mg PO DAILY 01/06/20 07/27/22 extended release omeprazole 40 mg capsule,delayed 40 mg PO DAILY 01/06/20 07/27/22 release icosapent ethyl 1 gram capsule 4 g PO BID 02/23/22 07/27/22 (Vascepa) lisinopril 5 mg tablet 20 mg PO DAILY 02/23/22 07/27/22 metformin 500 mg tablet 500 mg PO DAILY 02/23/22 07/27/22 nebivolol 2.5 mg tablet (Bystolic) 20 mg PO QPM 02/23/22 07/27/22 rosuvastatin 40 mg tablet 40 mg PO DAILY 02/23/22 07/27/22 ticagrelor 90 mg tablet (Brilinta) 60 mg PO Q12H 02/23/22 07/27/22 <Vanita Florez PA-C - Last Filed: 11/23/22 18:36> Allergies/Adverse reactions: Allergies Allergy/AdvReac Type Severity Reaction Status Date / Time No Known Allergies Allergy Unknown Verified 11/23/22 10:58 <Vanita Florez PA-C - Last Filed: 11/23/22 18:36> Review of Systems Review of Systems: CONSTITUTIONAL: Denies fever CARDIOVASCULAR: Denies chest pain, or edema. RESPIRATORY: Denies dyspnea. GASTROINTESTINAL: Reports abdominal pain, nausea, vomiting, and diarrhea. GENITOURINARY: Denies dysuria NEUROLOGIC: Reports generalized weakness. <Vanita Florez PA-C - Last Filed: 11/23/22 18:36> All systems reviewed & are unremarkable except as noted in HPI and below <Vanita Florez PA-C - Last Filed: 11/23/22 18:36> [facility] Past Medical History Medical History: Medical History (Updated 11/23/22 @ 18:26 by Vanita Florez PA-C) Coronary artery disease (09/2020) Non STEMI status post drug-eluting stents to 1st diagonal. Hyperlipidemia Hypertension Obstructive sleep apnea Tobacco use Type 2 diabetes mellitus <Vanita Florez PA-C - Last Filed: 11/23/22 18:36> Surgical History Surgical History: Surgical History (Updated 11/23/22 @ 14:57 by Medina Davila PA-C) History of coronary angioplasty with insertion of stent (09/2020) <Vanita Florez PA-C - Last Filed: 11/23/22 18:36> Family History Family History: Family History Father Acute myocardial infarction Congestive heart failure Diabetes mellitus Hypertension Cerebrovascular accident 1st stroke was treated successfully with tPA. Later of a hemorrhagic stroke. Grandparent Acute myocardial infarction Mother Alive and well <Vanita Florez PA-C - Last Filed: 11/23/22 18:36> Social History Social History: Social History (Updated 11/23/22 @ 15:00 by Medina Davila PA-C) Social History: Surrogate medical decision maker: Gaby Almonte, mother. Code status: Do not resuscita
[2022-11-23 12:12] LABS: Blood Urea Nitrogen 168 mg/dL (9-20)
[2022-11-23 12:20] LABS: Appearance Urine Cloudy (Clear); Bacteria Urine None Seen /hpf; Bilirubin Urine Negative (Negative); Blood Urine 3+ (Negative); Color Urine Yellow (Yellow); Glucose Urine UA Negative (Negative); Hyaline Casts Urine Present /lpf; Ketones Urine Trace mg/dL (Negative); Leukocyte Esterase Ur Negative LEU/UL (Negative); Nitrate Urine Negative (Negative); Protein Urine 2+ mg/dL (Negative); RBC Urine 21-50 /hpf (0-2); Squamous Epithelial Cell Urine Moderate /hpf (Few); Urobilinogen Urine 0.2 mg/dL (<2.0); WBC Urine 0-5 /hpf
[2022-11-23 12:21] LABS: Add Urine Microscopic? YES
[2022-11-23 12:24] LABS: Troponin I 0.188 ng/mL (0.000-0.034)
[2022-11-23] MEDS: FAMOTIDINE 20 MG/2 ML VIAL IV PUSH (12:59)
[2022-11-23] MEDS: ONDANSETRON INJ 4 MG/2 ML VIAL IV PUSH (12:59)
[2022-11-23] MEDS: SODIUM CHLORIDE 0.9% IV 500 ML 999 ML IV CONT (13:40)
[2022-11-23 13:41] LABS: Creatine Kinase 54 U/L (55-170)
[2022-11-23] MEDS: ACETAMINOPHEN 500 MG TABLET 1000 MG PO (13:43)
[2022-11-23 13:49] LABS: Hemoglobin A1C 5.3 % (<5.7)
[2022-11-23] MEDS: CEFEPIME 2 GM/NS 50 ML 2 GM/50 ML BAG IVPB (13:50)
[2022-11-23 13:57] LABS: Glucose Point of Care 114 mg/dl (65-105)
[2022-11-23] MEDS: LACTATED RINGERS 1,000 ML 999 ML IV CONT (14:03)
[2022-11-23] MEDS: VANCOMYCIN 1,250 MG/NS 250 ML 1,250 MG/250 ML BAG 166.67 MG IVPB (14:44)
--- NOTE | 2022-11-23 14:48 | PM.IMHP ---
H&P: HPI History of Present Illness Date/Time: 11/23/22 15:30 Chief Complaint: Multiple complaints. Narrative: This is a very pleasant 52-year-old male with coronary artery disease with history of stents, hypertension, dyslipidemia, and type 2 diabetes mellitus who presented to the emergency department via private vehicle from home for evaluation of multiple complaints. He was started on Ozempic in May and has lost approximately 45 lb. The drug has caused him to have a change in taste and decreased appetite. He has frequent nausea which has gotten worse the last several weeks. He told his doctor that he was no longer going to be taking Ozempic and his last dose was 2 weeks ago. Unfortunately he has not felt better and has continued to get worse. He describes intermittent, diffuse abdominal cramping, frequent nausea, multiple episodes of emesis, and intermittent constipation and diarrhea. He was out of town on business recently and reports that he did not eat for almost 1 week due to feeling so poorly. He has no energy and has not been able to work for the past 7 days or more. He is sleeping upwards of 18 hours a day. finally convinced him to come in today for evaluation. He denies sick contacts, fever, cold and flu symptoms, chest pain, cough, shortness of breath, and dysuria. On arrival to the ED his blood pressure was 91/57, pulse 74, pulse ox 90% room air, temperature 93.6?. Labs were significant for a WBC count of 20, sodium 139, potassium 6.0, chloride 109, carbon dioxide 8, anion gap 22, BUN 168, creatinine 8.00, phosphorus 7.2, magnesium 2.0, calcium 9.5, troponin 0.188, CRP less than 0.5, AST 66, ALT 135, lipase 303, beta hydroxybutyrate 1.07. Urine showed 2+ protein, trace ketones, 3+ blood, 21 to 50 RBC, casts were noted on microscopy. Chest x-ray and CT of the abdomen and pelvis were without acute findings. He received a 2 L fluid bolus in addition to a dose of cefepime and vancomycin and he is being admitted in this setting for further treatment and evaluation. Regarding the acute kidney injury, he has no known history of kidney disease. He has not noticed a change in urine or urine output. He has been on 5 mg lisinopril for many years. He does admit to taking 800 mg of ibuprofen twice a day and has done so for years, treating generalized aches and pains. Review of Systems Review of Systems: Twelve systems were reviewed and are negative except for as per HPI. [facility] Past Medical History Medical History Coronary artery disease (09/2020) Non STEMI status post drug-eluting stents to 1st diagonal. Hyperlipidemia Hypertension Obstructive sleep apnea Tobacco use Type 2 diabetes mellitus Surgical History Surgical History History of coronary angioplasty with insertion of stent (09/2020) Family History Family History Father Acute myocardial infarction Congestive heart failure Diabetes mellitus Hypertension Cerebrovascular accident 1st stroke was treated successfully with tPA. Later of a hemorrhagic stroke. Grandparent Acute myocardial infarction Mother Alive and well Social History Social History (Updated 11/28/22 @ 15:50 by Medina Davila PA-C) Social History: Surrogate medical decision maker: Gaby Almonte, mother. Code status: Do not resuscitate. Smoking packs per day: 1 Smoking cigarettes per day: 20.0 Years smoked: 30 Smoking pack-years: 30.00 Smoking status: Former smoker Tobacco type: cigarettes Alcohol intake: never Drinks per week: 3 Substance use: current Substance use type: marijuana Last use: 11/20/2022 Lack of Transportation: No Lack of Food: Never True Current Housing: I Have Housing Concerned About Future Housing: No Difficulty Paying Gas/Electric Bills: No Difficulty Paying
[2022-11-23] MEDS: SODIUM BICARBONATE 8.4% 100 MEQ in WATER, STERILE FOR INJECTION 1,000 ML 50 MEQ IV CONT (16:57)
[2022-11-23 17:12] LABS: Fractional Inspired Oxygen 21 %; HCO3 VBG 9.1 mEq/l (24.0-30.0); PCO2 VBG 35.8 mmHg (42.0-48.0)
[2022-11-23 17:28] LABS: Anion Gap 18 mmol/L (8-16); Calcium 8.4 mg/dL (8.4-10.2); Carbon Dioxide 8 mmol/L (22-30); Chloride 115 mmol/L (98-107); Estimated CRCL calculation 16 ml/min; Estimated Glomerular Filt Rate 11; Glucose 77 mg/dL (65-110); Potassium 5.7 mmol/L (3.4-5.0); Sodium 141 mmol/L (137-145)
[2022-11-23 17:29] LABS: Procalcitonin 0.3 ng/mL
[2022-11-23 17:31] LABS: Troponin I 0.139 ng/mL (0.000-0.034)
[2022-11-23 17:38] LABS: Blood Urea Nitrogen 148 mg/dL (9-20)
[2022-11-23 18:10] LABS: PO2 VBG < 27.0 mmHg (35.0-45.0); pH VBG 7.025 (7.300-7.400)
[2022-11-23] MEDS: SODIUM BICARBONATE 8.4% 50 MEQ/50 ML SYRINGE IV PUSH ×2 (18:51)
--- NOTE | 2022-11-23 21:55 | ADMGEN ---
This patient, Shiva Almonte, was admitted to Intensive Care Unit-10. Patient/family oriented to hospital policies and general routines including ID bracelet, bed and alarms, visiting hours, pain management, procedures, bathroom and other care routines, personal items, smoking policy, room service/diet, and visiting hours. Information on how to activate the Rapid Response Team has been discussed. Patient/Family are encouraged to report perceived risks to care and to ask questions if they do not understand what they are told or what they should do.
[2022-11-23 22:55] LABS: Fractional Inspired Oxygen 21 %; HCO3 VBG 8.9 mEq/l (24.0-30.0); PO2 VBG 56.5 mmHg (35.0-45.0)
[2022-11-23 22:57] LABS: pH VBG 6.722 (7.300-7.400)
[2022-11-23 22:58] LABS: Device ROOM AIR; PCO2 VBG 69.9 mmHg (42.0-48.0)
[2022-11-23 23:05] LABS: Anion Gap 18 mmol/L (8-16); Calcium 8.3 mg/dL (8.4-10.2); Carbon Dioxide 10 mmol/L (22-30); Chloride 115 mmol/L (98-107); Creatine Kinase 54 U/L (55-170); Estimated CRCL calculation 20 ml/min; Estimated Glomerular Filt Rate 14; Glucose 79 mg/dL (65-110); Potassium 5.2 mmol/L (3.4-5.0); Sodium 143 mmol/L (137-145)
[2022-11-23 23:07] LABS: Blood Urea Nitrogen 130 mg/dL (9-20)
[2022-11-23] MEDS: SODIUM BICARBONATE 8.4% 50 MEQ/50 ML SYRINGE 100 MEQ IV PUSH (23:54)
[2022-11-24] VITALS (14 sets, daily range): BP systolic 90–107; BP diastolic 55–72; PULSE 69–89; RESP 12–100; TEMP 36.5–37.3; O2SAT 93–100; BMI 25.5
--- NOTE | 2022-11-24 | ECHO_ITS ---
Patient Info Name: Shiva Almonte Age: 52 years : 1970 Gender: Male Ht: 72 in Wt: 160 lbs BSA: 1.92 m2 HR: 85 bpm BP: 92 / 66 mmHg Heart Rhythm: Sinus Rhythm Technical Quality: Good Exam Date: 11/24/2022 11:17 AM Exam Location: [facility] Pulmonary Patient Status: Inpatient Admit Date: 11/23/2022 Staff Ordering Physician: Medina Davila PA-C Fitness Worker: Patricia Murphy RDCS Attending Provider: Sunil Cherry MD Referring Physician: Lola ALVARES; Exam Type: CA echo doppler color flow Study Info Indications - elevated troponin Complete two-dimensional, color flow and Doppler transthoracic echocardiogram is performed. Summary 1. Complete two-dimensional, color flow and Doppler transthoracic echocardiogram is performed. 2. Normal left ventricular size and thickness with good contractility of all segments. Ejection fraction is 70%. Normal diastolic function. 3. Borderline left atrial enlargement. 4. No significant valve disease. 5. Normal estimated pulmonary pressure. 6. Normal sinus rhythm. Left Ventricle Left ventricular chamber dimension is normal. Left ventricular systolic function is normal, estimated at >70%. There is no increased left ventricular wall thickness. Left ventricular septal wall motion is normal. The left ventricular diastolic function is normal. Right Ventricle Right ventricular chamber dimension is normal. Right ventricular systolic function is normal. Left Atria Left atrial chamber dimension is normal. Right Atria Right atrial chamber dimension is normal. Aortic Valve The aortic valve is trileaflet. There is no aortic valve sclerosis. There is no aortic valve stenosis. There is no aortic valve regurgitation. Pulmonic Valve The pulmonic valve is normal. There is no pulmonic valve stenosis. There is no pulmonic regurgitation. Mitral Valve The mitral valve has normal leaflets. There is no mitral valve stenosis. There is no mitral valve regurgitation. Tricuspid Valve The tricuspid valve leaflets are normal. There is no significant tricuspid valve stenosis. There is trace tricuspid valve regurgitation. No pulmonary hypertension, estimated pulmonary arterial systolic pressure is 25 mmHg. Pericardium/Pleural The pericardium appears normal. There is no pericardial effusion. Inferior Vena Cava Normal inferior vena cava with >50% collapse upon inspiration consistent with Empty right atrial pressure, 10 mmHg. Aorta The aortic root size at the sinus of Valsalva is normal. The prox ascending aorta size is normal. Left Ventricular Outflow Tract Name Value Normal LVOT 2D LVOT Diameter 2.1 cm LVOT Doppler LVOT Peak Gradient 8 mmHg LVOT Mean Gradient 4 mmHg LVOT VTI 30 cm LVOT VTI/AV VTI Ratio 1.0 LVOT Stroke Volume 102 ml LVOT CO 6.7 l/min LVOT CI 3.5 l/min/m2 Pulmonic Valve Name Value Normal
[2022-11-24] MEDS: SODIUM BICARBONATE 8.4% 150 MEQ in WATER, STERILE FOR INJECTION 950 ML 100 MEQ IV CONT ×2 (00:31→12:02)
[2022-11-24] MEDS: LACTATED RINGERS 1,000 ML 500 ML IV CONT (03:52)
[2022-11-24 05:07] LABS: Basophils Absolute Auto 0.1 K/mm3 (0.0-0.1); Basophils Percent Auto 1.1 % (0.2-1.2); Eosinophils Absolute Auto 0.3 K/mm3 (0-0.3); Eosinophils Percent Auto 2.6 % (0-4.4); Hematocrit 39.5 % (42.0-52.0); Hemoglobin 12.8 g/dL (14.0-18.0); Immature Granulocyte Absolute 0.03 K/mm3 (0.00-0.031); Immature Granulocyte Percent A 0.3 % (0-0.5); Lymphocytes Absolute Auto 1.66 K/mm3 (0.9-3.2); Lymphocytes Percent Auto 16.1 % (18.3-44.2); Mean Corpuscular HGB Conc 32.4 g/dl (32-36); Mean Corpuscular Hemoglobin 28.3 pg (26-34); Mean Corpuscular Volume 87.4 fl (80-100); Mean Platelet Volume 10.5 fl (7.4-10.4); Monocytes Absolute Auto 0.9 K/mm3 (0.1-0.6); Monocytes Percent Auto 9.1 % (2.6-8.5); Neutrophils Absolute Auto 7.3 K/mm3 (1.3-6.7); Neutrophils Percent Auto 70.8 % (45.5-73.1); Platelet Count Result 167 k/mm3 (150-375); Red Blood Count 4.52 M/mm3 (4.6-6.20); Red Cell Distribution Width 14.4 % (11.5-14.5); White Blood Count 10.3 K/mm3 (4.5-10.0)
[2022-11-24 05:08] LABS: PCO2 VBG 31.6 mmHg (42.0-48.0); PO2 VBG 20.7 mmHg (35.0-45.0); pH VBG 7.318 (7.300-7.400)
[2022-11-24 05:09] LABS: Device ROOM AIR; Fractional Inspired Oxygen 21 %; HCO3 VBG 15.8 mEq/l (24.0-30.0)
[2022-11-24 05:22] LABS: Anion Gap 18 mmol/L (8-16); Blood Urea Nitrogen 109 mg/dL (9-20); Calcium 8.2 mg/dL (8.4-10.2); Carbon Dioxide 13 mmol/L (22-30); Chloride 114 mmol/L (98-107); Estimated CRCL calculation 26 ml/min; Estimated Glomerular Filt Rate 19; Glucose 75 mg/dL (65-110); Magnesium 1.5 mg/dL (1.6-2.3); Phosphorus 4.1 mg/dL (2.5-4.5); Potassium 4.2 mmol/L (3.4-5.0); Sodium 145 mmol/L (137-145)
[2022-11-24 05:26] LABS: Vancomycin Trough 13.1 ug/mL (10.0-20.0)
[2022-11-24 05:36] LABS: Hemoglobin A1C 5.4 % (<5.7)
[2022-11-24 06:12] LABS: Glucose Point of Care 71 mg/dl (65-105)
[2022-11-24 09:11] LABS: Glucose Point of Care 95 mg/dl (65-105)
[2022-11-24] MEDS: ENOXAPARIN 30 MG/0.3 ML SYRINGE SUB-Q (09:47)
[2022-11-24] MEDS: MAGNESIUM SULF 2 GM/WATER 50ML 2 GM/50 ML BAG IVPB (09:48)
--- NOTE | 2022-11-24 10:05 | PM.CNNEP ---
Assessment and Plan Assessment and plan (1) Acute kidney injury: Code(s): N17.9 - Acute kidney failure, unspecified Status: Acute Assessment and Plan: baseline creatinine normal ~ 2 years ago possible underlying CKD given risk factors? multifactorial etiology: prerenal factors relative hypotension concurrent NSAID and CONRADO-I use priot to admission metformin (?) clinical improvement with ongoing therapy testing noted: renal ultrasound unremarkable follow-up on urine studies follow trend of repeat labs and UOP (2) Acute hyperkalemia: Code(s): E87.5 - Hyperkalemia Status: Acute Assessment and Plan: corrected with medical management secondary to ABBY/ARF and CONRADO-I use follow trend of repeat K+ levels (3) Metabolic acidosis: Code(s): E87.20 - Acidosis, unspecified Status: Acute Assessment and Plan: mixed gap and non-gap acidosis due to mild DKA, ABBY/ARF, and GI symptoms normal lactic acid slow improvement noted continue bicarb IVFs for now (4) Hypertension: Code(s): I10 - Essential (primary) hypertension Status: Acute Assessment and Plan: stable if not on the lower end of normal BP medications on hold resume BP medications depending on trend of hemodynamics (5) Type 2 diabetes mellitus: Code(s): E11.9 - Type 2 diabetes mellitus without complications Status: Acute Assessment and Plan: follow accu-cheks glycemic control per hospitalist/binding folder machine Discussed case with Dr. Figueredo. > 20 minutes was spent in detail discussion with the patient as well as at bedside regarding the severity of his acute kidney injury/acute renal failure and the possibility that his renal function may not fully recover back to his previous normal baseline as of labs done 2 years ago. He may have some underlying chronic kidney disease given his known risk factors and may have a possible new baseline creatinine given the severity of the insult that has occurred. Hopefully, he will not require any other further intervention (i.e. dialysis) other than just supportive therapy at this time. I will continue follow patient with you while he remains hospitalized and make further recommendations during his hospital course. Thank you for allowing me to participate in the care of this patient. History of Present Illness Reason for Consult Consult date: 11/24/22 Reason for consult: acute renal failure Chief Complaint Chief complaint: Acute Renal Failure History of Present Illness Narrative: The patient is a 52-year-old male with a past medical history as outlined below who presented to [facility] Emergency room for further evaluation of general malaise and weakness. The patient was apparently started Ozempic in May of 2022 for ongoing management of his type 2 diabetes. Apparently, since he started that medication, he has had significant issues and problems including a weight loss of about 45 lb, decreased appetite, frequent nausea in association with vomiting, intermittent diffuse abdominal cramping / pain, constipation, and diarrhea. As the symptoms continued to progress he stopped the medication about 2 weeks ago but his symptoms did not really improve. His reports that he has been sleeping upwards of 18 hours a day and he reports that he has no energy which has led to him not working for last week if not longer. As the symptoms did not seem to be improving, he finally decided to come to the ER for further assessment at the behest of his . Workup and evaluation emergency room demonstrated the patient be hemodynamically stable although his blood pressure was a little bit on the soft side at 90 systolic. Routine blood tests were done which demonstrated an elevated white blood cell count, and significant/severe acute kidney injury/ acute renal failure with a BUN of 168 and a creatinine of 8.0 in associatio
--- NOTE | 2022-11-24 10:52 | WPDCNINT ---
Assessment and Plan Assessment and plan (1) Acute hyperkalemia: Code(s): E87.5 - Hyperkalemia Status: Acute Assessment and Plan: Patient presented with potassium of 6.00 at the time of presentation which has improved with medical treatment to 4.2 Monitor (2) Hypertension: Code(s): I10 - Essential (primary) hypertension Status: Acute Assessment and Plan: Blood pressure in low normal range at this time hold beta-reji and lisinopril at this time (3) Coronary artery disease: Onset Date: 09/2020 Code(s): I25.10 - Atherosclerotic heart disease of [place] coronary artery without angina pectoris Status: Acute Assessment and Plan: Continue aspirin Brilinta and statin Hold beta-reji and CONRADO-inhibitor (4) Metabolic acidosis: Code(s): E87.20 - Acidosis, unspecified Status: Acute Assessment and Plan: Mixed anion gap and non-anion gap metabolic acidosis likely secondary to DKA, dehydration acute renal failure Normal lactic acid rules out metformin toxicity Improving Currently on IV fluids with bicarb (5) Acute kidney injury: Code(s): N17.9 - Acute kidney failure, unspecified Status: Acute Assessment and Plan: Patient presented with acute renal failure which appears to be multifactorial secondary to dehydration which was worsened by him taking NSAIDs and lisinopril. No eosinophil seen on UA Unremarkable renal ultrasound Creatinine and urine output has improved with IV fluids Continue IV fluids. Check urine electrolytes Monitor serum electrolytes Nephrology has been consulted No indication for hemodialysis at this time but may need in the future if renal function does not improve Nephrology is currently seeing the patient and I will defer further evaluation management to Nephrology (6) Type 2 diabetes mellitus: Code(s): E11.9 - Type 2 diabetes mellitus without complications Status: Acute Assessment and Plan: Sliding scale insulin (7) DKA (diabetic ketoacidosis): Code(s): E11.10 - Type 2 diabetes mellitus with ketoacidosis without coma Status: Acute Assessment and Plan: Patient had mildly elevated beta hydroxybutyrate on presentation but his blood sugar was not significantly elevated His HB A1c was only 5.4 Patient is currently not on IV insulin infusion. He did receive segment IV fluids. Patient is also asymptomatic at this time i will repeat beta hydroxybutyrate. And continue subcutaneous insulin at this time Plan Patient did receive a dose of antibiotics and presentation but does not evidence of infection. Will hold further antibiotics at this time. DVT prophylaxis -Lovenox Nutrition -renal diet Code Status - Full Code Transfer out of ICU today. Discussed with nephrology Manager Personnel Selection Consult Note Consult date: 11/24/22 Reason for consult: Acute renal failure, acidosis HPI: Shiva Almonte is a 52 year old male with past medical history of diabetes, hypertension, COVID-19, coronary disease presented yesterday with chief complaint of nausea vomiting abdominal pain going on for several weeks. Patient states that he was taking Ozempic for diabetes and weight loss and developed side effects including nausea vomiting and poor p.o. intake. Due to his side effects he stopped taking medication 2 weeks ago. He was also having abdominal pain which was diffuse with alternating constipation and diarrhea. He was taking NSAIDs as an outpatient for his abdominal pain. He continue take his regular medications. Noticed weight loss approximately 40-50 lb over last 6 months. Abdominal pain was intermittent diffuse cramping in quality sedated with nausea vomiting with no radiation. He also was having increased sleepiness and felt weak and tired. All other systems were reviewed and were negative Workup in the ED showed blood pressure was 91/57, pulse 74, pulse ox 90% room air, temperature 93.6?. Labs we
[2022-11-24 11:07] LABS: Beta-Hydroxybutyrate/Acetoacetate 3.88 mmol/L (0.02-0.27)
[2022-11-24] MEDS: TICAGRELOR 60 MG TABLET PO ×2 (12:03→20:07)
[2022-11-24] MEDS: ROSUVASTATIN 20 MG TABLET 40 MG PO (12:03)
[2022-11-24] MEDS: ASPIRIN 81 MG ENTERIC TABLET PO (12:04)
[2022-11-24 12:10] LABS: Glucose Point of Care 219 mg/dl (65-105)
[2022-11-24] MEDS: INSULIN ASPART (*BKC) 100 UNITS/ML SUB-Q (12:11)
[2022-11-24] MEDS: buPROPion HCL XL (24 HR) 150 MG TABCR 300 MG PO (15:07)
[2022-11-24 16:10] LABS: Anion Gap 11 mmol/L (8-16); Blood Urea Nitrogen 76 mg/dL (9-20); Calcium 8.3 mg/dL (8.4-10.2); Carbon Dioxide 27 mmol/L (22-30); Chloride 108 mmol/L (98-107); Estimated CRCL calculation 39 ml/min; Estimated Glomerular Filt Rate 32; Glucose 106 mg/dL (65-110); Potassium 3.5 mmol/L (3.4-5.0); Sodium 146 mmol/L (137-145)
[2022-11-24 16:27] LABS: Sodium Urine Random 65 meq/L
[2022-11-24 16:48] LABS: Glucose Point of Care 97 mg/dl (65-105)
[2022-11-24] MEDS: SODIUM CHLORIDE 0.45% 1,000 ML 75 ML IV CONT (18:38)
[2022-11-24 20:13] LABS: Glucose Point of Care 106 mg/dl (65-105)
--- NOTE | 2022-11-24 21:59 | PC.NURSE ---
This patient, Shiva Almonte, was transferred to [facility] on 11/24/22 at 2130. Personal belongings sent with patient. Report given to Tom GUERRERO. Appropriate documentation sent with patient.
[2022-11-25] VITALS: PULSE 76
[2022-11-25 02:00] VITALS: PULSE 70
[2022-11-25 04:00] VITALS: BP 105/66; PULSE 71; PULSE 76; RESP 18; TEMP 36.4; O2SAT 97
[2022-11-25 04:34] LABS: Hematocrit 32.6 % (42.0-52.0); Hemoglobin 10.9 g/dL (14.0-18.0); Mean Corpuscular HGB Conc 33.4 g/dl (32-36); Mean Corpuscular Hemoglobin 28.5 pg (26-34); Mean Corpuscular Volume 85.1 fl (80-100); Mean Platelet Volume 10.8 fl (7.4-10.4); Platelet Count Result 147 k/mm3 (150-375); Red Blood Count 3.83 M/mm3 (4.6-6.20); Red Cell Distribution Width 13.9 % (11.5-14.5); White Blood Count 8.5 K/mm3 (4.5-10.0)
[2022-11-25 04:53] LABS: Alanine Aminotransferase 76 U/L (6-50); Albumin Level 3.3 g/dL (3.5-5.1); Alkaline Phosphatase 55 U/L (38-126); Anion Gap 9 mmol/L (8-16); Aspartate Amino Transferase 41 U/L (17-59); Bilirubin,Total 0.4 mg/dL (0.2-1.3); Blood Urea Nitrogen 52 mg/dL (9-20); Calcium 7.8 mg/dL (8.4-10.2); Carbon Dioxide 25 mmol/L (22-30); Chloride 109 mmol/L (98-107); Estimated CRCL calculation 61 ml/min; Estimated Glomerular Filt Rate 53; Glucose 86 mg/dL (65-110); Magnesium 1.5 mg/dL (1.6-2.3); Sodium 143 mmol/L (137-145)
[2022-11-25 06:00] VITALS: PULSE 68
[2022-11-25 07:49] VITALS: BP 104/69; PULSE 75; RESP 18; TEMP 36.3; O2SAT 98
[2022-11-25 08:18] LABS: Glucose Point of Care 86 mg/dl (65-105)
[2022-11-25] MEDS: SODIUM CHLORIDE 0.45% 1,000 ML 75 ML IV CONT (08:43)
[2022-11-25] MEDS: buPROPion HCL XL (24 HR) 150 MG TABCR 300 MG PO (08:46)
[2022-11-25] MEDS: ENOXAPARIN 30 MG/0.3 ML SYRINGE SUB-Q (08:46)
[2022-11-25] MEDS: ASPIRIN 81 MG ENTERIC TABLET PO (08:46)
[2022-11-25] MEDS: ROSUVASTATIN 20 MG TABLET 40 MG PO (08:46)
[2022-11-25] MEDS: TICAGRELOR 60 MG TABLET PO (09:03)
--- NOTE | 2022-11-25 10:46 | PM.DS ---
DS: Admitting Diagnosis Discharge Date 11/25/22 Admitting Diagnosis GI symptoms DS: Discharge Diagnosis Discharge Diagnosis (1) Acute hyperkalemia: Code(s): E87.5 - Hyperkalemia Status: Acute (2) Metabolic acidosis: Code(s): E87.20 - Acidosis, unspecified Status: Acute (3) Acute kidney injury: Code(s): N17.9 - Acute kidney failure, unspecified Status: Acute (4) Type 2 diabetes mellitus: Code(s): E11.9 - Type 2 diabetes mellitus without complications Status: Acute (5) DKA (diabetic ketoacidosis): Code(s): E11.10 - Type 2 diabetes mellitus with ketoacidosis without coma Status: Acute (6) Hypertension: Code(s): I10 - Essential (primary) hypertension Status: Acute (7) Coronary artery disease: Onset Date: 09/2020 Code(s): I25.10 - Atherosclerotic heart disease of [place] coronary artery without angina pectoris Status: Acute DS: Summary Hospital Course Reason for hospitalization: 52-year-old male with coronary artery disease with history of stents, hypertension, dyslipidemia, and type 2 diabetes mellitus who presented to the emergency department via private vehicle from home for evaluation of multiple complaints including abdominal cramping, nausea, vomiting and diarrhea. Please see H&P for details. Hospital Course: Patient was started on exam PICC in May and lost approximately 45 lb. He did have a change in taste and decreased appetite. He developed GI symptoms that worsen. He stopped the Ozempic 2 weeks prior to this admission but continued to have symptoms and presented to the emergency room for evaluation. In the Emergency room, he was found have a BUN of 168 and a creatinine of 8. His serum bicarb was 8 with anion gap of 22. He is on metformin. His potassium was 6. CT of the abdomen pelvis showed no acute findings. Chest x-ray was clear. He was treated with IV fluids. His hyperkalemia was treated appropriately. He is also on lisinopril and ibuprofen both of which felt to be contributing to his above findings. Renal US normal. Was admitted to the ICU initially. Echocardiogram showed EF of 70% otherwise normal. Nephrology consulted. He had hypotension felt related to severe dehydration. He was fluid responsive and blood pressure improved. We held his lisinopril and beta-reji. His A1c was 5.4. TSH was normal. White count is elevated at 20 K but this trended to normal. He was on antibiotics on admission through the ED but this was stopped quickly since there is no clear evidence of infection. BCx NGTD. With IV fluids, BUN trend down to 52 and creatinine 1.4. Patient is eating and drinking normally. No nausea or vomiting. Voiding normally. He is up walking to the bathroom. He feels ready for discharge. Discussed with Nephrology who felt patient could be discharged home safely today with routine lab work in a week to ensure that his renal function does improve. Patient had a normal baseline creatinine 2 years ago but he may have underlying CKD given his risk factors. Patient overall did well was able be discharged home on 11/25/2022 Status at Discharge Cognitive/behavioral status at discharge: stable Time Spent with Patient Time attestation: Total time spent providing and/or coordinating discharge services: 35 minutes Time spent: Greater than 30 minutes Exam Narrative: General: Pt is alert awake and in NAD Lungs/Chest: Clear BS B/L, No crackles or wheezing. Cardiac: RRR. Normal S1 S2. No murmurs. Tele showing no significant dysrhythmia Abdomen: Normal bowel sounds.. Soft. NT. ND. Extremities: No pedal edema Neurologic: Nonfocal Skin: No Rash DS: Data Data Completed and Pending Labs on day of discharge: Labs from last 24 hours 11/25/22 11/25/22 11/24/22 07:17 03:43 20:02 WBC 8.5 RBC 3.83 L Hgb 10.9 L Hct 32.6 L MCV 85.1 MCH 28.5 MCHC 33.4 RDW 13.9
== END 2022-11-25 12:13 | disposition home or self-care (01) | DRG 683 ==
LOC: ANHED 18:26 → ANHICU 21:19 → ANHIMU 11-24 21:57
PROVIDERS: Internal Medicine; Physician Assistant; Admitting Provider Internal Medicine; Emergency Provider Physician Assistant; PCP Family Medicine Sports Medicine; Visit Provider Internal Medicine
DX: N17.9 Acute kidney failure, unspecified (principal); E87.21 Acute metabolic acidosis; I25.10 Atherosclerotic heart disease of native coronary artery without angina pectoris; I10 Essential (primary) hypertension; E78.5 Hyperlipidemia, unspecified; E11.9 Type 2 diabetes mellitus without complications; G47.33 Obstructive sleep apnea (adult) (pediatric); E87.5 Hyperkalemia; E86.0 Dehydration; Z66 Do not resuscitate; I25.2 Old myocardial infarction; Z95.5 Presence of coronary angioplasty implant and graft; Z79.82 Long term (current) use of aspirin; Z79.84 Long term (current) use of oral hypoglycemic drugs; Z87.891 Personal history of nicotine dependence; R77.8 Other specified abnormalities of plasma proteins; Z86.16 Personal history of COVID-19
CPT/HCPCS: 36415; 36600; 71046; 74176; 76775; 80048; 80053; 80202; 81001; 82010; 82550; 82570; 82803; 82948; 83036; 83605; 83690; 83735; 84100; 84145; 84300; 84443; 84484; 85025; 85027; 85610; 85730; 86140; 87040; 93005; 93306; 96361; 96365; 96375; 99285; A9270; J0692; J1650; J1815; J2405; J3370; J3475; J7030; J7040; J7120

== ENCOUNTER 2022-12-03 10:04 | Outpatient (CLI) | payer OTHER, SELFPAY ==
[2022-12-03 10:55] LABS: Anion Gap 5 mmol/L (8-16); Blood Urea Nitrogen 14 mg/dL (9-20); Calcium 8.7 mg/dL (8.4-10.2); Carbon Dioxide 35 mmol/L (22-30); Chloride 101 mmol/L (98-107); Estimated Glomerular Filt Rate > 60; Glucose 102 mg/dL (65-110); Phosphorus 3.1 mg/dL (2.5-4.5); Potassium 3.3 mmol/L (3.4-5.0); Sodium 141 mmol/L (137-145)
== END 2022-12-03 10:05 | disposition home or self-care (01) ==
LOC: ANHLAB 10:05
PROVIDERS: PCP Family Medicine Sports Medicine; Visit Provider Internal Medicine
DX: N17.9 Acute kidney failure, unspecified (principal)
CPT/HCPCS: 36415; 80069

== ENCOUNTER → 2023-03-11 09:50 | Outpatient (CLI) | payer OTHER, SELFPAY ==
--- NOTE | ~2023-03-11 | CT_ITS ---
EXAMINATION: CT lung screening DATE: 03/11/2023 09:59 INDICATION: Personal history of nicotine dependence TECHNIQUE: Computed tomography (CT) of the chest was performed without intravenous contrast. The dose -length product was 191.70 mGy-cm. Automated exposure control and iterative reconstruction technique were employed. COMPARISON: CT dated 03/10/2022 FINDINGS: Heart size normal. No significant pleural or pericardial effusion. No thoracic lymphadenopa thy. No endobronchial lesions. Mild emphysema. No pneumothorax. No focal airspace consolidation. No s uspicious pulmonary nodules or masses. IMPRESSION: 1. Lung-RADS category 2: Benign appearance or behavior. Continue annual screening with noncontrast lo w-dose chest CT in 12 months. Reviewed, dictated and finalized at location [facility] IMPRESSION: 1. Lung-RADS category 2: Benign appearance or behavior. Continue annual screeni ng with noncontrast low-dose chest CT in 12 months.
== END ==
PROVIDERS: PCP Family Medicine; Visit Provider Physician Assistant
DX: Z12.2 Encounter for screening for malignant neoplasm of respiratory organs (principal); Z87.891 Personal history of nicotine dependence
CPT/HCPCS: 71271

== ENCOUNTER 2023-12-06 10:03 | Outpatient (CLI) | payer OTHER, SELFPAY ==
[2023-12-28 13:26] VITALS: BMI 25.0
--- NOTE | 2023-12-28 13:26 | WPDHOMESLEEP ---
Sleep Study - Home Unattended Date of Study: 12/06/23 Ordering Provider: RAPHAEL Huston Interpreting Provider: Ene Zurita, DO Home Sleep Study Type: Watch PAT Height: 1.83 m Weight: 83.915 kg Body Mass Index: 25.0 Neck Circumference (inches): 15.5 [place]: 0 Reason for Sleep Study Snoring, difficulty falling asleep Sleep History The patient is a 53-year-old male that had a sleep study ordered by the pulmonary group for evaluation of sleep apnea. The patient was previously diagnosed with moderate sleep apnea and did well on CPAP. He stopped using his CPAP around November 2022 after losing 45 pounds. He denies loud snoring. He denies stopping breathing during the night. He denies choking and gasping while asleep. He denies having trouble breathing on his back. He does wake up with a headache in the morning. He denies having a dry or sore mouth /throat in the morning. He denies nocturnal heartburn. He denies nocturia. He denies having trouble falling asleep and staying asleep. He denies waking up too early without an alarm. He does take a hypnotic or sedative. He denies feeling anxious about sleep. He denies daytime hypersomnia. He denies feeling unrefreshed in the morning. He denies having the urge to fall asleep during the day. He denies feeling drowsy while driving. He denies sleep paralysis, cataplexy and hypnagogic / hypnopompic hallucinations. He denies clenching or grinding his teeth. He denies kicking or jerking his legs excessively. He denies having a restless feeling in his legs. He goes to bed at 10:30 p.m. on weekdays and at 11:00 p.m. on the weekends. he typically gets 7 hours of sleep per night. He denies taking any planned naps. His sleep is restorative on his days off. He denies dream enactment. He denies sleep walking. He denies consuming any caffeinated beverages during the day. He denies tobacco, alcohol and recreational drug use. He denies exercising on a regular basis. PMFSH Past Medical History Medical History Coronary artery disease (09/2020) Non STEMI status post drug-eluting stents to 1st diagonal. Hyperlipidemia Hypertension Obstructive sleep apnea Tobacco use Type 2 diabetes mellitus Surgical History Surgical History History of coronary angioplasty with insertion of stent (09/2020) Family History Family History Father Acute myocardial infarction Congestive heart failure Diabetes mellitus Hypertension Cerebrovascular accident 1st stroke was treated successfully with tPA. Later of a hemorrhagic stroke. Grandparent Acute myocardial infarction Mother Alive and well Social History Social History Social History: Surrogate medical decision maker: Gaby Huanger, mother. Code status: Do not resuscitate. Smoking packs per day: 1 Smoking cigarettes per day: 20.0 Years smoked: 30 Smoking pack-years: 30.00 Smoking status: Former smoker Tobacco type: cigarettes Alcohol intake: never Drinks per week: 3 Substance use: current Substance use type: marijuana Last use: 11/20/2022 Lack of Transportation: No Lack of Food: Never True Current Housing: I Have Housing Concerned About Future Housing: No Difficulty Paying Gas/Electric Bills: No Difficulty Paying for Meds: No Currently Unemployed: No Education: Bachelor's Degree Difficulty w/ Childcare or Family Care: No Additional living arrangements comments: Has 2 sons. 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 Spiritual care concerns: No Medications Home Medications Medication Instructions Recorded Confirmed Type aspirin 81 mg tablet 81 mg PO DAILY 01/06/20 10/19/23 History b
== END 2023-12-07 09:24 | disposition home or self-care (01) ==
LOC: ANHCSM 10:07
PROVIDERS: PCP Family Medicine; Visit Provider Physician Assistant
DX: G47.33 Obstructive sleep apnea (adult) (pediatric) (principal)
CPT/HCPCS: 95800

== ENCOUNTER 2024-03-27 15:25 | Outpatient (CLI) | payer OTHER, SELFPAY ==
--- NOTE | ~2024-03-27 | CT_ITS ---
EXAMINATION:CT lung screening DATE: 03/27/2024 15:34 INDICATION: Personal history of nicotine dependence. Smoker who quit 2 years ago with 25 pack year hi story. TECHNIQUE: Computed tomography (CT) of the chest was performed without intravenous contrast. Automate d exposure control and iterative reconstruction technique were employed. The dose-length product (DLP ) was 165.17 mGy-cm. COMPARISON: Chest CT 03/11/2023 FINDINGS: There is mild atelectasis in lingula. No pleural effusion. The heart size is normal. There are coronary artery calcifications. No pericardial effusion. There is mild bilateral gynecomastia. Th ere is a small sliding hiatal hernia. There are old healed bilateral rib fractures. IMPRESSION: 1. Lung-RADS category 1: Negative. Continue annual screening with noncontrast low-dose chest CT in 12 months. Reviewed, dictated and finalized at location [facility] IMPRESSION: 1. Lung-RADS category 1: Negative. Continue annual screening with noncontrast l ow-dose chest CT in 12 months.
== END 2024-03-27 15:26 | disposition home or self-care (01) ==
LOC: MICIMG 15:25
PROVIDERS: PCP Family Medicine; Visit Provider Physician Assistant
DX: Z12.2 Encounter for screening for malignant neoplasm of respiratory organs (principal); Z87.891 Personal history of nicotine dependence
CPT/HCPCS: 71271